=== PATIENT | male | born 1970 | race Caucasian/White ===

== ENCOUNTER 2021-05-10 21:58 | Emergency (ER) | payer BC, OTHER ==
[~2021-05-10] VITALS: Ht 175.3 cm; Wt 83.8 kg
[2021-05-10] MEDS ORDERED: KETOROLAC 30 MG/1 ML IVPush ONE (22:30)
[2021-05-10 23:06] LABS: BASOPHILS % (AUTO) 1 % (0-1); EOSINOPHILS % (AUTO) 4 % (1-7); LYMPHOCYTES % (AUTO) 36 % (22-44); MEAN CORPUSCULAR HEMOGLOBIN 32.2 pg (27.5-34.5); MEAN CORPUSCULAR HGB CONC 35.7 g/dL (33.2-36.2); MEAN PLATELET VOLUME 9.7 fL (7.4-10.4); MONOCYTES % (AUTO) 8 % (2-9); NEUTROPHILS % (AUTO) 51 % (42-75); PLATELET COUNT 212 x10^3/uL (130-400); RED CELL DISTRIBUTION WIDTH 12.8 % (9.4-14.8)
[2021-05-10 23:17] LABS: ALBUMIN 3.9 g/dL (3.4-5.0); ANION GAP 6 mmol/L (5-15); CALCIUM 8.5 mg/dL (8.5-10.1); CHLORIDE 104 mmol/L (98-107); CREATININE 0.99 mg/dL (0.7-1.3)
--- NOTE | 2021-05-10 23:53 | NUR ---
PT C/O OF LEFT SIDED FLANK PAIN SINCE YESTERDAY AND HAS GOTTEN WORSE SINCE TODAY. PT REPORTS SAND-LIKE GRANY URINE. HX OF KIDNEY STONES. DENIES BURNING WHEN URINATING, N/V/D. ATTACHED TO MONITORS. VSS. NADN. BED IN LOW. RAIIL ENGAGED. CALL LIGHT ON LAP. AMBULATED TO ROOM WITH STEADY GAIT, AND CHANGED INTO GOWN.
[2021-05-11 00:08] LABS: MICROSCOPIC NOT IND
[2021-05-11] MEDS ORDERED: KETOROLAC 30 MG/1 ML IM ONE (00:30)
--- NOTE | 2021-05-11 00:49 | NUR ---
PT STATES SHE DOES NOT TAKE ANY MEDICATIONS CURRENTLY. N/A MED REC
[2021-05-11 00:55] VITALS: BP 127/88
--- NOTE | 2021-05-11 01:12 | NUR ---
Patient/Caregiver given discharge instructions and they have confirmed that they understand the instructions. Patient ambulatory with steady gait. NAD, all questions answered appropriately, denies additional needs at this time. No personal belongings left in room after discharge.
== END 2021-05-11 01:22 | disposition home or self-care (01) ==
LOC: ED 23:59
DX: R10.9 Unspecified abdominal pain (principal); R30.0 Dysuria
CPT/HCPCS: 36415; 74176; 80048; 81003; 82040; 85025; 99284